=== PATIENT | female | born 1935 | race Caucasian/White ===

== ENCOUNTER 2016-11-25 06:31 | Day surgery (SDC) | payer MEDICARE ==
--- NOTE | 2016-11-15 15:45 | PREOP HISTORY & PHYSICAL ---
HISTORY: 81 year old female with developing cataracts OU - here for evaluation of declining vision over time. She is having more trouble with quilting, reading smaller print, and driving (seeing road signs). She denies seeing significant "starbursts or haloes" around lights at night. She notes problems with "clarity" as well as "color problems" when working on her quilting. This has gotten significantly worse since the last eye appointment 6 months ago. The current glasses are about 6 months old (made at [facility], [employer]). Patient noted some initial improvement in her vision with the new glasses, but shortly after getting them, the vision worsened once again. PAST OCULAR HISTORY: Developing cataracts OU, Choroidal nevus OS, Dysfunctional tear syndrome, Compound hyperopic astigmatism and presbyopia OCULAR MEDICATIONS: Opcon-A OU prn only in allergy season. PAST MEDICAL HISTORY: Cataract, nuclear sclerotic, both eyes (H25.13) Developing cataracts OU. 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 Environmental allergies (Z91.09) Hypothyroidism ALLERGIES: No Known Drug Addujdmxa28/10/2014 FAMILY HISTORY: No Significant Family Ocular History SOCIAL HISTORY: Alcohol Use Moderate alcohol use. Tobacco Use Former smoker. Vehicle Driving Yes. CURRENT MEDICATIONS: Ventolin (90MCG/ACT Aerosol Soln, Inhalation as needed) Active. Detrol (Oral daily) Specific dose unknown - Active. Premarin (Oral daily) Specific dose unknown - Active. ZyrTEC (Oral daily, as needed) Specific dose unknown - Active. L-Thyroxine Sodium (Oral daily) Specific dose unknown - Active. Medications Reconciled PAST SURGICAL HISTORY: Hysterectomy (not due to cancer) - Complete About 1966. REVIEW OF SYSTEMS: General Not Present- Fever. Skin Not Present- New Lesions, Skin Cancer and Skin Problems. HEENT Present- Allergies and Blurred Vision. Not Present- Decreased Hearing, Eye Pain, Sinusitis and Sleep Apnea. Respiratory Present- Asthma. Not Present- Chronic Cough, Emphysema and Shortness of Breath. Breast Not Present- Breast Cancer. Cardiovascular Not Present- Angina, Heart Problems, Heart Stent, Hyperlipidemia and Hypertension. Gastrointestinal Not Present- Heartburn and PUD. Female Genitourinary Not Present- Kidney Problems. Musculoskeletal Present- Joint Pain. Neurological Not Present- Decreased Memory, Headaches, Stroke and Vertigo. Psychiatric Not Present- Anxiety and Depression. Endocrine Not Present- Diabetes and Thyroid Problems. Hematology Not Present- Bleeding Problems and Blood Clots. Note: Reviewed by Dr. Bardales. PHYSICAL EXAMINATION: Vitals (Hunter Bardales M.D.; 10/05/2016 4:39 PM) 10/05/2016 4:38 PM Pulse: 68 (Regular) P.OX: 92% (Room air) BP: 141/80 (Sitting, Left Wrist, Small) Chest and Lung Exam Auscultation Breath sounds - Clear and Symmetric throughout. Cardiovascular Auscultation Rhythm - Regular. Heart Sounds - Normal heart sounds. Murmurs & Other Heart Sounds - Auscultation of the heart reveals - No Murmurs. OCULAR EXAMINATION: VISUAL ACUITY: with correction (Glasses) OD 20/40-1 OS 20/40-2 NEAR J3 at 14" WORKING Rx: OD +1.00 + 0.75 x 015 OS +0.75 Sphere ADD + 2.75 (Progressive lens) MANIFEST REFRACTION: OD +1.25 + 0.75 x 025 (20/30-1 BAT 20/40) Better vision in trial frames OS +0.50 Sphere (20/40+2 BAT 20/50) Slightly better vision in trial frames ADD + 2.75 (J1+ at 14") Better near vision in trial frames than previous Rx CONFRONTATIONAL VISUAL KAPOOR: Normal to counting fingers in four quadrants OU PUPILS: Round and equal OU with no afferent pupillary defect seen EXTERNAL: Normal OU EXTRA-OCULAR MUSCLES: Versions full OU - orthotropic at both distance and near SLIT LAMP EXAM: LIDS/LASHES: Significant makeup debris and meibomian inspissation OU. Some lower lid notching OU CONJUNCTIVA: Quiet OU CORNEA: Clear with poor tear film OU AC: Deep and quiet OU IRIS: Normal OU PUPILS: Round OU - dilated to only about 5 mm OU LENS: 3+ dense yellow central nuclear sclerosis with 2+ vacuolar cortical cataract changes in the visual axis OS > OD ANTERIOR VITREOUS: No anterior vitreous cells or pigment seen OU TONOMETRY: TIME: 8:21 AM OD: 11 mm Hg OS: 11 mm Hg DILATING gtt: Phenylephrine 2.5% + Tropicamide 1% FUNDUS: C/D: 0.5 OD, 0.6 OS with a 0.75 disc diameter faint, flat, non-suspicious appearing juxta-papillary choroidal nevus infero-nasal to the optic nerve OS DISCS: Sharp with clear disc margins OU MACULA: 1-2+ surface wrinkling retinopathy changes OD. Absent foveal reflex OS VESSELS: Normal OU PERIPHERY: Moderate peripheral reticular degeneration OU. No retinal breaks seen KERATOMETRY: OD 44.49 / 45.16 x 053 OS 43.81 / 44.30 x 122 AXIAL LENGTH: OD 22.64 +/- 0.019 OS 22.65 +/- 0.011 IMPRESSION: Cataract, nuclear sclerotic, both eyes (H25.13) Story: Visually significant cataracts OS > OD - discussed with patient today who is quite bothered by her current vision and would like to proceed with cataract surgery. We discussed the refractive goals today and the patient would like to be corrected to a near-plano spherical equivalent postoperatively OS. 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 Macular pucker, right (H35.371) Early surface wrinkling retinopathy OD - discussed with patient today and I let her know that this may also affect the vision in addition to the cataract in the right eye. PLAN: Cataract extraction with intra-ocular lens OS, November 25, 2016. Lid soaks and scrubs BID OU (pre-operative blepharitis protocol and antibiotic ointment instructions handout given to patient today). Erythromycin ophthalmic ointment q hs OU as blepharitis prophylaxis (an e-Rx with refills x 1 was sent to [facility] in [place] ([phone] ) today). BIOMETRY, OPHTHALMIC, BY PARTIAL COHERENCE INTERFEROMETRY (92320) Started Erythromycin 5MG/GM, Apply 1/8 inch Ointment to the eyelashes of both eyes at bedtime, 1 Tube, 10/05/2016, Ref. x1. Started Gatifloxacin 0.5%, 1 (one) drop four times daily to the operated eye, after surgery, 1 Bottle, 10/05/2016, Ref. x1. Started PrednisoLONE Acetate 1%, 1 drop(s) four times daily in the operated eye , after surgery, 10 Milliliter, 10/05/2016, Ref. x1. MTDD
[~2016-11-25 06:31] MED LIST: BUPIVACAINE HCL/PF 0.75% 10 ML VIAL OP ONE; CIPROFLOXACIN 0.3% OPHTH 50 DROP/5 ML BTL OP SCH; CYCLOPENTOLATE HCL 1% OPHTH 2 ML BTL OP SCH; FLURBIPROFEN 0.03% OPHTH 2.5 ML BTL OP SCH; PHENYLEPHRINE 2.5% OPHTH 10 DROP/2 ML BTL OP SCH
[2016-11-25] MEDS ORDERED: LIDOCAINE HCL/PF 1% 30 ML VIAL ONE (06:57)
[2016-11-25] MEDS ORDERED: BACITRACIN OPHTH OINTMENT 3.5 GM TUBE ONE (06:57)
[2016-11-25] MEDS ORDERED: KETOROLAC 0.45% OPHTH 1 DROP/EACH DROPERETTE ONE (06:57)
[2016-11-25] MEDS ORDERED: CHONDROITIN/HYALURONIDATE OPHT 0.5 ML KIT ONE (06:58)
[2016-11-25 07:03] VITALS: RESP 16; TEMP 98.2
[2016-11-25] MEDS ORDERED: BUPIVACAINE HCL/PF 0.75% 10 ML VIAL ONE (07:03)
[2016-11-25] MEDS ORDERED: CIPROFLOXACIN 0.3% OPHTH 50 DROP/5 ML BTL ONE (07:04)
[2016-11-25] MEDS ORDERED: CYCLOPENTOLATE HCL 1% OPHTH 2 ML BTL ONE (07:04)
[2016-11-25] MEDS ORDERED: PHENYLEPHRINE 2.5% OPHTH 10 DROP/2 ML BTL ONE (07:04)
[2016-11-25] MEDS ORDERED: APRACLONIDINE 0.5% OPHTH 5 ML BTL ONE (07:04)
[2016-11-25] MEDS ORDERED: FLURBIPROFEN 0.03% OPHTH 2.5 ML BTL ONE (07:04)
[2016-11-25] MEDS ORDERED: APRACLONIDINE 0.5% OPHTH 5 ML BTL OP ONE (08:00)
[2016-11-25 08:36] VITALS: BP 169/81; PULSE 59; O2SAT 95
--- NOTE | 2016-11-25 14:15 | OPERATIVE REPORT ---
DATE OF SURGERY: 11/25/2016. SURGEON: Hunter Bardales MD ANESTHESIA: Topical with monitored anesthesia care. PREOPERATIVE DIAGNOSIS: Cataract, left eye, Abnormal pupil, left eye. POSTOPERATIVE DIAGNOSIS: Cataract, left eye, Abnormal pupil, left eye. OPERATION PERFORMED: Complex cataract extraction by phacoemulsification with posterior chamber intraocular lens, left eye. COMPLICATIONS: None. PROCEDURE: The patient was brought to the operating room where she was placed in the supine position. After the instillation of additional tetracaine drops in the left eye, the eye was prepped and draped in the usual sterile ophthalmic manner. Despite preoperative dilating eyedrops, the patient's pupil had only dilated to about 4 mm in the left eye. A lid speculum was placed in the left eye, after which an inferior paracentesis was fashioned with 1-mm steel keratome, and 0.2 mL of 1% nonpreserved lidocaine was injected intracamerally followed by Viscoat. A temporal clear corneal incision of 3-mm width was fashioned with a steel keratome. A continuous curvilinear capsulorrhexis was fashioned with a bent-needle cystitome and Utrata forceps under Viscoat. Hydrodissection was carried out with balanced salt solution on an intraocular cannula. Immediately, a large portion of the temporal iris prolapsed out of the temporal wound and the iris was noted to be extremely floppy. The pupil had reduced to a tear-drop shape (temporally) and was only about 2 mm in diameter centrally. Attempts using an iris spatula and viscoelastic (Viscoat and Provisc) to reposit iris tissue into the eye were unsuccessful. The patient denied any history of Tamsulosin use when asked, but her pupil was exceedingly floppy. Surgery could not proceed at this time without additional maneuvers. A 6.25 mm Malyugian ring was brought onto the surgical field, inspected, and noted to be in good condition. It was inserted into the anterior chamber and the iris engaged to the ring using the Malyugian ring manipulator. This allowed the temporal iris to be reposited into the anterior chamber, and created an adequate central aperture for the surgery to proceed. After additional hydrodissection, the nucleus was noted to rotate freely. Phacoemulsification proceeded in a two-handed fashion utilizing high phacoemulsification times and emerson, as the nucleus was noted to be 3+ dense. Residual cortical material was then removed with the automated irrigation- aspiration handpiece. The anterior chamber and capsular bag were then reinflated with Provisc, after which an AcrySof model SA60AT foldable acrylic intraocular lens of 23.5 diopters power was placed into the capsular bag. The haptics were rotated with a Y hook and the intraocular lens was noted to center well. The Malyugian ring was removed using the Malyugian ring manipulator and injector. Residual viscoelastic was then removed with the automated irrigation- aspiration handpiece. The pupil was noted to collapse down to only about 2.5 mm at this time, and she was noted to have severe temporal iris chafing / iris atrophy from the severe prolapse encountered earlier. Further maneuvers including irrigation with BSS and stroking the wound were required to reposit all iris tissue at the conclusion after the wound edges were rehydrated with balanced salt solution. The intraocular pressure at the conclusion of the procedure was physiologic, and there was no evidence of wound leakage upon testing with a Weck Priti sponge. Acular drops and bacitracin ointment were placed in the left eye, and the patient was brought to the recovery area, having tolerated the procedure well. She was given full postoperative instructions. CHARLINE
== END 2016-11-25 08:45 | disposition home or self-care (01) ==
LOC: SDS 06:31
PROVIDERS: ATTEND Ophthalmology
DX: H25.12 Age-related nuclear cataract, left eye (principal); D31.32 Benign neoplasm of left choroid; H04.123 Dry eye syndrome of bilateral lacrimal glands; E03.9 Hypothyroidism, unspecified; Z79.899 Other long term (current) drug therapy
CPT/HCPCS: J0171; V2632